=== PATIENT | female | born 1955 | race Caucasian/White ===

== ENCOUNTER → 2016-12-23 | Outpatient (CLI) | payer OTHER ==
[~2016-12-23] MED LIST: BENADRYL25 MG PO; BICARSIM80 MG PO; CELEBREX200 MG PO; LORTAB 5-325 M1 EACH PO; MAALOX DPS30 ML PO; MELATONIN10 M2 PO; MILK OF MAGNESI10 ML PO; MULTIVITAMINS1 EAC1 PO; OXY IR DPS5 MG PO; PEPCID20 MG PO; SENOKOT S1 TAB PO; TYLENOL-DPS650 MG PO; TYLENOL325 MG PO; ULTRAM DPS50 MG PO; VALTREX DPS1 GM PO; VISTARIL50 MG PO; XARELTO10 MG PO; ZOFRAN4 M1 PO
== END | disposition home or self-care (01) ==
LOC: RAD.S 08:16
DX: Z12.31 Encounter for screening mammogram for malignant neoplasm of breast (principal)

== ENCOUNTER → 2016-12-24 | Outpatient (CLI) | payer OTHER | END | disposition home or self-care (01) | LOC: RAD.S 09:37 | DX: F17.211 Nicotine dependence, cigarettes, in remission (principal); R91.8 Other nonspecific abnormal finding of lung field ==

== ENCOUNTER → 2016-12-28 | Outpatient (CLI) | payer OTHER | END | disposition home or self-care (01) | LOC: RAD.S 12-24 23:30 | DX: R92.2 Inconclusive mammogram (principal); N60.11 Diffuse cystic mastopathy of right breast ==